=== PATIENT | male | born 1985 | race Caucasian/White ===

== ENCOUNTER 2016-10-04 14:22 | Emergency (ER) | payer OTHER ==
[2016-10-04 15:21] VITALS: RESP 16; TEMP 98.9; O2SAT 98
--- NOTE | 2016-10-04 15:52 | C.PDOC ---
History Of Present Illness 30 yr old male presents to the ER with complaints of sore throat, coughing and runny nose for the past 3 days. Patient denies fever, chest pain, SOB, nausea, vomiting or rash. Time Seen by Provider: 10/04/16 15:29 Chief Complaint (Nursing): Fever History Per: Patient History/Exam Limitations: no limitations Onset/Duration Of Symptoms: Days (3) Past Medical History Reviewed: Historical Data, Nursing Documentation, Vital Signs Vital Signs: Last Vital Signs Temp 98.9 F 10/04/16 15:14 Pulse 70 10/04/16 17:06 Resp 16 10/04/16 17:06 BP 125/74 10/04/16 17:06 Pulse Ox 98 10/04/16 17:06 - Medical History PMH: Back Problems Family History: States: No Known Family Hx - Social History Hx Tobacco Use: No Hx Alcohol Use: No Hx Substance Use: No - Immunization History Hx Tetanus Toxoid Vaccination: Yes Hx Influenza Vaccination: No Hx Pneumococcal Vaccination: No Review Of Systems Except As Marked, All Systems Reviewed And Found Negative. Constitutional: Negative for: Fever ENT: Positive for: Nose Discharge, Throat Pain (Sore throat ) Cardiovascular: Negative for: Chest Pain Respiratory: Positive for: Cough. Negative for: Shortness of Breath Gastrointestinal: Negative for: Nausea, Vomiting Skin: Negative for: Rash Physical Exam - Physical Exam Appears: Non-toxic, No Acute Distress Skin: Warm, Dry, No Pale, No Rash Head: Atraumatic, Normacephalic Eye(s): bilateral: Normal Inspection Ear(s): Bilateral: Normal Oral Mucosa: Moist Throat: Erythema (Bilateral tonsillar erythema ), Exudate (Minimal ), Other ((+ ) swelling ) Neck: Normal ROM, Supple Chest: Symmetrical, No Tenderness Cardiovascular: Rhythm Regular, No Friction Rub, No Murmur Respiratory: Normal Breath Sounds, No Rales, No Rhonchi, No Stridor, No Wheezing Extremity: Normal ROM, No Swelling Neurological/Psych: Oriented x3, Normal Speech, Normal Motor, Normal Sensation Gait: Steady ED Course And Treatment O2 Sat by Pulse Oximetry: 98 (RA ) Pulse Ox Interpretation: Normal Medical Decision Making Medical Decision Making: PLAN: * Amoxicillin PO * Motrin PO * Prednisone PO Disposition - Disposition Referrals: [facility] [Outside] Disposition: HOME/ ROUTINE Disposition Time: 16:57 Condition: GOOD Additional Instructions: Return if worsened. Prescriptions: Amoxicillin [Amoxil 500 mg Cap] 500 mg PO BID #20 cap Ibuprofen [Motrin] 600 mg PO TID #21 tab predniSONE [Prednisone] 20 mg PO BID #10 tab Instructions: Pharyngitis (ED) - Clinical Impression Clinical Impression: Pharyngitis - PA / EMERGENCY DEPARTMENT TECHNICIAN / Resident Statement MD/DO has reviewed & agrees with the documentation as recorded. - Scribe Statement The provider has reviewed the documentation as recorded by the Scribe Jossy Clemente All medical record entries made by the Eugenio were at my direction and personally dictated by me. I have reviewed the chart and agree that the record accurately reflects my personal performance of the history, physical exam, medical decision making, and the department course for this patient. I have also personally directed, reviewed, and agree with the discharge instructions and disposition.
[2016-10-04 17:07] VITALS: BP 125/74; PULSE 70
== END 2016-10-04 17:06 | disposition home or self-care (01) ==
LOC: C.ER 14:22
DX: J02.9 Acute pharyngitis, unspecified (principal)